=== PATIENT | male | born 1960 | race Native Hawaiian/Other Pacific Islander ===

== ENCOUNTER 2019-07-03 15:56 | Outpatient (CLI) | payer BC | END 2019-07-03 21:49 | disposition home or self-care (01) | LOC: RAD 15:56 | DX: R05 Cough (principal); J44.9 Chronic obstructive pulmonary disease, unspecified ==

== ENCOUNTER 2021-07-25 09:01 | Outpatient (CLI) | payer OTHER | END 2021-07-25 19:27 | disposition home or self-care (01) | LOC: US 09:01 | PROVIDERS: ATTEND Nurse Practitioner Family | DX: I10 Essential (primary) hypertension (principal); E11.9 Type 2 diabetes mellitus without complications; N19 Unspecified kidney failure ==